=== PATIENT | male | born 1990 | race Two or more races ===

== ENCOUNTER 2024-03-30 18:31 | Emergency (ER) | payer MEDICAID, OTHER ==
[~2024-03-30] VITALS: Ht 177.8 cm; Wt 112.0 kg
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
--- NOTE | 2024-03-30 19:35 | DVH ---
CHEST RADIOGRAPH Indication:SOB Technique: Frontal and lateral view of the chest was obtained Comparison: None FINDINGS: Lines and Tubes: None Lungs: Clear Pleura: No effusion. No pneumothorax. Cardiomediastinal contours: Unremarkable Bones: Unremarkable IMPRESSION: No evidence of acute disease.
[2024-03-30] MEDS: ALBUTEROL SULF 2.5 MG/0.5ML(0.5%) NEB SOLN NEB ONE (19:39)
[2024-03-30 19:40] LABS: Basophils # (auto) 0 10 ^3/uL (0-0.2); Basophils % (auto) 0.5 % (0.0-2.0); Eosinophils # (auto) 0.1 10 ^3/uL (0-0.8); Eosinophils % (auto) 0.6 % (0.0-7.0); Hematocrit 47.6 % (41.0-53.0); Hemoglobin 16.1 g/dL (13.5-17.5); Lymphocytes # (auto) 2.8 10 ^3/uL (0.4-5.4); Lymphocytes % (auto) 32.6 % (10.0-50.0); Mean Corpuscular Hemoglobin 30.5 pg (28.0-32.0); Mean Corpuscular Hgb Conc. 33.7 g/dL (32.0-36.0); Mean Corpuscular Volume 90.3 fL (80.0-100.0); Monocytes # (auto) 0.9 10 ^3/uL (0-1.3); Monocytes % (auto) 10.5 % (0.0-12.0); Neutrophils # (auto) 4.8 10 ^3/uL (1.6-8.6); Neutrophils % (auto) 55.8 % (37.0-80.0); Nucleated Red Blood Cells % 0.1 %; Platelet Count (auto) 301 10^3/uL (140-450); Red Blood Cells 5.27 10^6/uL (4.5-5.90); Red Cell Distribution Width 14.5 % (11.8-14.3); White Blood Cell 8.7 10^3/uL (4.4-10.8)
[2024-03-30] MEDS: IPRATROPIUM BROM 0.5 MG/2.5ML INH SOL NEB ONE (19:40)
[2024-03-30 19:55] LABS: Chloride 105 mmol/L (98-107); Sodium 140 mmol/L (136-145)
[2024-03-30 19:56] LABS: Anion Gap 8 (5-15); Calcium 10.2 mg/dL (8.7-10.4); Carbon Dioxide 27 mmol/L (20-31)
[2024-03-30 20:01] LABS: BUN/Creatinine Ratio 15.8 (10.0-20.0); Blood Urea Nitrogen 16 mg/dL (9-23); Glucose 102 mg/dL (74-106)
[2024-03-30 20:17] VITALS: BP 135/71; PULSE 61; RESP 16; TEMP 98.6; O2SAT 93
[2024-03-30] MEDS: methylPREDNISolone SOD SUCC 125 MG/2 ML VL IV ONE (20:20)
[2024-03-30] MEDS: POTASSIUM CHL 20 Meq TABLET PO ONE (20:36)
[2024-03-30] MEDS ORDERED: PRED20TA2 PO (20:59)
== END 2024-03-30 21:20 | disposition home or self-care (01) ==
LOC: ER 18:31
DX: J45.901 Unspecified asthma with (acute) exacerbation (principal); E87.6 Hypokalemia; Z98.890 Other specified postprocedural states
CPT/HCPCS: 36415; 71046; 80048; 84484; 85025; 94640; 96374; 99284; J2919

== ENCOUNTER 2024-08-13 10:05 | Emergency (ER) | payer MEDICAID ==
[~2024-08-13] VITALS: Ht 177.8 cm; Wt 102.5 kg
[~2024-08-13 10:05] MED LIST: PRED20TA2 PO
[2024-08-13 10:46] VITALS: BP 138/55; PULSE 89; TEMP 98.9
--- NOTE | 2024-08-13 11:06 | ED.PDOC ---
SOB-HPI HPI Comments A 34 YEAR OLD MALE PRESENTS TO THE ED WITH CHIEF COMPLAINT OF ASTHMA EXA CERBATION. PATIENT REPORTS THAT HE HAS BEEN EXPERIENCING SOB WITH ASSOCIATED COUGH SINCE YESTERDAY AFTER EATING SHELLFISH LAST NIGHT, NOTING THAT HE IS ALLERGIC TO SHELLFISH. PATIENT STATES HE TRIED USING HIS ALBUTEROL INHALER AND NEBULIZER WITH NO RELIEF IN SYMPTOMS NOTED. PATIENT DENIES ANY CHEST PAIN, FEVER, CHILLS, DIZZINESS, OR SORE THROAT. NO OTHER SYMPTOMS REPORTED AT THIS T [facility]HA OF CARE. Chief Complaint: Asthma Time Seen by MD: 11:03 Primary Care Provider: NONE Reviewed notes: Nurses Notes, Medications, Allergies Information Source: Patient Mode of Arrival: Ambulatory Severity: Moderate Timing: Days Duration: Since onset Context: At Rest PE Risk Factors: None History of: Asthma Prehospital treatment: Breathing Tx Modifying Factors: Inhaler Associated Signs and Symptoms: Wheeze If cough with SOB: Non-Productive Past Medical History PAST MEDICAL HISTORY: Asthma Surgical History: Denies all surgeries Family History Family History: Reviewed,noncontributory to illness Social History Smoker: Non-Smoker Alcohol: Denies ETOH Use Drugs: Denies Drug Use Lives In: Home Constitutional: denies: chills, diaphoresis, fatigue, fever, malaise, sweats, weakness, others EENTM: denies: blurred vision, double vision, ear bleeding, ear discharge, ear drainage, ear pain, ear ringing, eye pain, eye redness, hearing loss, mouth pain, mouth swelling, nasal discharge, nose bleeding, nose congestion, nose pain, photophobia, tearing, throat pain, throat swelling, voice changes, others Respiratory: reports: cough, shortness of breath, wheezing; denies: hemoptysis, orthopnea, SOB at rest, SOB with excertion, stridor, others Cardiovascular: denies: chest pain, dizzy spells, diaphoresis, Dyspnea on exertion, edema, irregular heart beat, left arm pain, lightheadedness, palpitations, PND, syncope, others Gastrointestinal: denies: abdomen distended, abdominal pain, blood streaked bowels, constipated, diarrhea, dysphagia, difficulty swallowing, hematemesis, melena, nausea, poor appetite, poor fluid intake, rectal bleeding, rectal pain, vomiting, others Genitourinary: denies: burning, dysuria, flank pain, frequency, hematuria, incontinence, penile discharge, penile sore, pain, testicle pain, testicle swelling, urgency, others Neurological: denies: dizziness, fainting, headache, left sided numbness, left sided weakness, numbness, paresthesia, pre-existing deficit, right sided numbness, right sided weakness, seizure, speech problems, tingling, tremors, weakness, others Musculoskeletal: denies: back pain, gout, joint pain, joint swelling, muscle pain, muscle stiffness, neck pain, others Integumetry: denies: bruises, change in color, change in hair/nails, dryness, laceration, lesions, lumps, rash, wounds, others Allergic/Immunocompromised: denies: Difficulty Healing, Frequent Infections, Hives, Itching, others Hematologic/Lymphatic: denies: anemia, blood clots, easy bleeding, easy bruising, swollen glands, others Endocrine: denies: excessive hunger, excessive sweating, excessive thirst, excessive urination, flushing, intolerance to cold, intolerance to heat, unexplained weight gain, unexplained weight loss, others Psychiatric: denies: anxiety, bipolar disorder, depression, hopeless, panic disorder, schizophrenia, sleepless, suicidal, others All Other Systems: Reviewed and Negative Physical Exam General Appearance: No Apparent Distress, Normal HEENT: Normal ENT Inspection, PERRL/EOMI, Pharynx Normal Neck: Full Range of Motion, Non-Tender, Normal, Normal Inspection Respiratory: Decreased Breath Sounds, Expiration, Lungs Clear, No Accessory Muscle Use, No Respiratory Distress, Wheezing (MILD WEHEEZING ) Cardiovascular: No Edema, No JVD, No Murmur, No Gallop, Normal Peripheral Pulses, Regular Rate/Rhythm Breast Exam: Deferred Gastrointestinal: No Organomegaly, Non Tender, No Pulsatile Mass, Normal Bowel Sounds, Soft Genitalia: Deferred Pelvic: Deferred Rectal: Deferred Extremities: No calf tenderness, Normal capillary refill, Normal inspection, Normal range of motion, Non-tender, No pedal edema Musculoskeletal : Apperance: Normal Neurologic: Alert, transportation design engineer II-XII nml as Tested, No Motor Deficits, Normal Affect, Normal Mood, No Sensory Deficits Cerebellar Function: Normal Reflexes: Normal Skin: Dry, Normal Color, Warm Peripheral Pulses: 2+ carotid (R), 2+ carotid (L) Lymphatic: No Adenopathy Was a procedure done? Was a procedure done?: No Differential Dx Differential Diagnosis: Asthma, Bronchitis, Sinusitis, Allergic Rhinitis, Pharyngitis X-Ray, Labs, Meds, VS Vital Signs Date Time Temp Pulse Resp B/P (MAP) Pulse Ox O2 Delivery O2 Flow Rate FiO2 08/13/24 11:20 20 96 Room Air* 0 21 08/13/24 10:46 98.9 89 20 138/55 (82) 96 98.9 08/13/24 10:46 89 20 96 Room Air 08/13/24 10:18 98.9 89 20 138/55 (82) 96 08/13/24 10:18 20 96 Room Air* 0 21 Current Medications Medications (Trade) Dose Ordered Sig/Laly Route Start Time Stop Time Status Last Admin Albuterol (Ventolin Medneb) 5 mg ONCE ONCE NEB 08/13/24 11:15 08/13/24 11:16 DC 08/13/24 11:20 Ipratropium [place] (Atrovent Medneb) 1 mg ONCE ONCE NEB 08/13/24 11:15 08/13/24 11:16 DC 08/13/24 11:20 Methylprednisolone Sodium Succinate (Solu Medrol) 125 mg ONCE ONCE IM 08/13/24 11:15 08/13/24 11:16 DC 08/13/24 11:17 X-Ray, Labs, Meds, VS Comment EXTERNAL MEDICAL RECORDS REVIEWED: [NONE] INDEPENDENT HISTORIANS: [NONE] SOCIAL DETERMINANTS OF HEALTH: [NONE] LABS ORDERED: NONE REVIEWED AND INTERPRETED RESULTS: NONE IMAGING ORDERED: NONE TREATMENTS ORDERED: DUONEB BREATHING TREATMENT, SOLU-MEDROL 125MG IM PROCEDURES PERFORMED: NONE CRITICAL CARE TIME: NONE I HAVE DISCUSSED THE PATIENT WITH THE ATTENDING PHYSICIAN DR. MARI AND HE AGREES WITH THE PATIENT'S PLAN OF CARE AND DISPOSITION. BASED ON HISTORY OF PRESENT ILLNESS, AND PHYSICAL EXAM, PATIENT WILL BE DISCHARGED HOME. DISCUSSED PLAN FOR DISCHARGE HOME WITH RX. MEDICATION WARNINGS GIVEN. SHARED DECISION MAKING: DISCUSSED WITH PATIENT THAT THEIR WORKUP WAS NORMAL. PATIENT INSTRUCTED TO FOLLOW UP WITH PRIMARY CARE PROVIDER IN 1-2 DAYS FOR RE-EVALUATION OF SYMPTOMS. PATIENT VERBALIZES UNDERSTANDING TO RETURN TO ED FOR NEW OR WORSENING SYMPTOMS OR IF FOLLOW UP WITH PCP CANNOT BE OBTAINED. PATIENT FEELS COMFORTABLE GOING HOME AT THIS TIME. ALL QUESTIONS ADDRESSED AT TIME OF DISCHARGE. Time of 1ST Reevaluation: 11:40 Reevaluation 1ST: Improved Patient Education/Counseling: Diagnosis, Treatment, Need For Follow Up Family Education/Counseling: Diagnosis, Treatment, No Family Present Medical Screening: No EMC Exist At This Time Departure 1 Departure Time of Disposition: 11:40 Impression: Primary Impression: Acute asthma exacerbation Qualified Codes: J45.21 - Mild intermittent asthma with (acute) exacerbation Disposition: HOME / SELF CARE / HOMELESS Condition: Stable Additional Instructions: FOLLOW-UP WITH PCP IN 1 TO 2 DAYS. TAKE MEDICATIONS PRESCRIBED. RETURN TO ED FOR ANY NEW OR WORSENING SYMPTOMS. e-Prescriptions Ipratropium-Albuterol (Ipratropium [place]/Albut) 1 Brionna Brionna 1 BRIONNA IN TID, #3 ML Prov: JACQUELINE JAIME 08/13/24 Prednisone (Prednisone) 20 Mg Tab 60 MG PO DAILY, #18 TAB Prov: JACQUELINE JAIME 08/13/24 Discharged With: Self Critical Care Note Critical Care Time?: No Stability Stability form required: No Heart Score Heart Score: Heart Score Response (Comments) Value History N/A 0 EKG N/A 0 Age N/A 0 Risk Factors N/A 0 Troponin N/A 0 Total 0 I personally scribed for JACQUELINE JAIME ([email or web address]) on 08/13/24 at 11:06. Electronically submitted by Maurisio Dyer ([email or web address]). JACQUELINE JAIME Aug 13, 2024 11:06
[2024-08-13] MEDS: methylPREDNISolone SOD SUCC 125 MG/2 ML VL IM ONE (11:17)
[2024-08-13 11:20] VITALS: RESP 20; O2SAT 96
[2024-08-13] MEDS: ALBUTEROL SULF 2.5 MG/0.5ML(0.5%) NEB SOLN NEB ONE (11:20)
[2024-08-13] MEDS: IPRATROPIUM BROM 0.5 MG/2.5ML INH SOL NEB ONE (11:20)
[2024-08-13] MEDS ORDERED: IPRA0.00 IN (11:46)
[2024-08-13] MEDS ORDERED: PRED20TA2 PO (11:46)
--- NOTE | 2024-08-14 15:16 | ECG ---
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
== END 2024-08-13 11:52 | disposition home or self-care (01) ==
LOC: ER 10:05
DX: J45.901 Unspecified asthma with (acute) exacerbation (principal)
CPT/HCPCS: 93005; 94640; 96372; 99283; J2919

== ENCOUNTER 2025-04-01 18:05 | Emergency (ER) | payer MEDICAID ==
[~2025-04-01] VITALS: Ht 180.3 cm; Wt 100.0 kg
[~2025-04-01 18:05] MED LIST changes: +IPRA0.00 IN
--- NOTE | 2025-04-01 18:41 | DVH ---
XY CHEST TWO VIEWS ROUTINE CLINICAL HISTORY: sob COMPARISON: XY CHEST TWO VIEWS ROUTINE on DOS: 03/30/24 TECHNIQUE: Frontal and lateral view of the chest was obtained FINDINGS: Lines and Tubes: None Lungs: No focal consolidation. Inflation. Findings may represent asthma. Pleura: No effusion. No pneumothorax. Cardiomediastinal contours: Unremarkable Bones: No acute osseous abnormality. IMPRESSION: 1. No pulmonary airspace disease or consolidations. 2. Hyperinflation may be secondary to asthma.
[2025-04-01] MEDS ORDERED: ATROPINE SULF 1 MG/10ml SYR IV ONE (19:45)
[2025-04-01] MEDS: ALBUTEROL SULF 2.5 MG/0.5ML(0.5%) NEB SOLN NEB ONE (19:46)
[2025-04-01 19:52] VITALS: BP 147/94; PULSE 66; RESP 18; TEMP 98.3; O2SAT 98
[2025-04-01] MEDS ORDERED: IPRA0.00 IN (20:08)
[2025-04-01] MEDS ORDERED: PRED20TA2 PO (20:08)
--- NOTE | 2025-04-02 10:19 | ECG ---
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
--- NOTE | 2025-04-02 11:25 | ED.PDOC ---
SOB-HPI HPI Comments REPORTS SHORTNESS OF BREATH X 3 DAYS. NO RESPIRATORY DISTRSS NOTED. Denies chest pain, difficulty breathing, fever, chills, nausea, vomiting or dizziness. Chief Complaint: Shortness of Breath Time Seen by MD: 18:14 Primary Care Provider: NONE Reviewed notes: Nurses Notes, Medications, Allergies Information Source: Friend Mode of Arrival: Ambulatory Past Medical History PAST MEDICAL HISTORY: Asthma Surgical History: Denies all surgeries Family History Family History: Reviewed,noncontributory to illness Social History Smoker: Non-Smoker Alcohol: Denies ETOH Use Drugs: Denies Drug Use Lives In: Home All Other Systems: Reviewed and Negative (See HPI) Physical Exam General Appearance: No Apparent Distress, Normal HEENT: Normal ENT Inspection, Pharynx Normal, TMs Normal Neck: Full Range of Motion, Non-Tender Respiratory: No Respiratory Distress, Wheezing Cardiovascular: No Edema, No JVD, No Murmur, No Gallop, Normal Peripheral Pulses, Regular Rate/Rhythm Breast Exam: Deferred Gastrointestinal: Non Tender, Soft Genitalia: Deferred Pelvic: Deferred Rectal: Deferred Extremities: Normal range of motion, No pedal edema Musculoskeletal : Apperance: Normal Neurologic: Alert, No Motor Deficits, Normal Affect, Normal Mood, No Sensory Deficits Cerebellar Function: Normal Reflexes: NOT DONE Skin: Dry, Normal Color, Warm Lymphatic: No Adenopathy Was a procedure done? Was a procedure done?: No Differential Dx Differential Diagnosis: Asthma, Bronchitis, Myocardial infarction, Pneumonia, Pneumothorax, URI X-Ray, Labs, Meds, VS Vital Signs Date Time Temp Pulse Resp B/P (MAP) Pulse Ox O2 Delivery O2 Flow Rate FiO2 04/01/25 19:52 98.3 66 18 147/94 (111) 99 98.3 04/01/25 19:52 66 18 98 Room Air* 0 21 04/01/25 19:48 18 97 Room Air* 0 21 04/01/25 19:30 60 04/01/25 18:06 97.8 85 16 122/71 96 97.8 X-Ray, Labs, Meds, VS Comment Patient given roberta barnard noted improvement requesting discharge at this time. EKG normal sinus no noted ectopy. Time of 1ST Reevaluation: 18:35 Reevaluation 1ST: Unchanged Time of 2ND Reevaluation: 20:00 Reevaluation 2ND: Improved Patient Education/Counseling: Diagnosis, Treatment, Need For Follow Up Family Education/Counseling: No Family Present SEPSIS Sepsis Screen Date sepsis recognized/suspect: Apr 01, 2025 Time Sepsis recognized/suspect: 1806 Recent Procedure: No On Antibiotic Therapy: No Respiratory Rate >20: No Heart Rate >90: No Temp<36 C (96.8 F) or >38.3 C: No SBP <90 or MAP <65 mmHG: No New Acute Mental Status Change: No Is the patient on CPAP, BIPAP,: No Physician Orders Chest Two Views Routine (04/01/25 18:13) Electrocardigram (04/01/25 19:13) Med Neb Initial Treatment (04/01/25 19:35) Vital Signs Date Time Temp Pulse Resp B/P (MAP) Pulse Ox O2 Delivery O2 Flow Rate FiO2 04/01/25 19:52 98.3 66 18 147/94 (111) 99 98.3 04/01/25 19:52 66 18 98 Room Air* 0 21 04/01/25 19:48 18 97 Room Air* 0 21 04/01/25 19:30 60 04/01/25 18:06 97.8 85 16 122/71 96 97.8 Departure 1 Departure Time of Disposition: 20:04 Impression: Primary Impression: Acute asthma exacerbation Qualified Codes: J45.901 - Unspecified asthma with (acute) exacerbation Disposition: 01 HOME / SELF CARE / HOMELESS Condition: Stable e-Prescriptions Prednisone (Prednisone) 20 Mg Tab 40 MG PO DAILY@BREAKFAST for 5 Days, #10 TAB Prov: SOTO COYNE 04/01/25 Ipratropium-Albuterol (Ipratropium [place]/Albut) 1 Brionna Brionna 1 BRIONNA IN TID PRN for 10 Days, #30 UNITS Prov: SOTO COYNE 04/01/25 Discharged With: Self Critical Care Note Critical Care Time?: No Stability Stability form required: No Heart Score Heart Score: Heart Score Response (Comments) Value History N/A 0 EKG Normal 0 Age <45 0 Risk Factors N/A 0 Troponin N/A 0 Total 0 SOTO COYNE Apr 01, 2025 20:08
== END 2025-04-01 20:14 | disposition home or self-care (01) ==
LOC: ER 18:08
DX: J45.901 Unspecified asthma with (acute) exacerbation (principal)
CPT/HCPCS: 71046; 93005; 94640; 96372; 99283; J1100